=== PATIENT | male | born 1945 | race Caucasian/White ===

== ENCOUNTER → 2021-04-29 06:13 | Outpatient (CLI) | payer MEDICARE, BC, SELFPAY ==
--- NOTE | 2021-04-29 06:16 | MRI_ITS ---
STUDY: MRI LUMBAR SPINE WITH AND WITHOUT CONTRAST REASON FOR EXAM: Male, 76 years old. pain TECHNIQUE: Standardized fat and water weighted pulse sequences were obtained in the sagittal and axial planes. IV dotarem 18ml was administered for the contrast portion of the examination. COMPARISON: Lumbar spine x-ray obtained 04/14/2021 FINDINGS: Straightening of the normal alignment of the columns of the lumbar spine is visualized. Mild grade 1 retrolisthesis of L4 over L5 is seen. Postoperative changes in the posterior column with laminectomy visualized at L3, L4 and L5. Extensive multilevel degenerative endplate changes visualized, no evidence of compression deformity of the lumbar vertebral bodies is seen, Schmorl''s nodes visualized at multiple levels. Heterogeneous signal intensity visualized within the marrow of the lumbar vertebral bodies consistent with degenerative changes and yellow marrow, no evidence of T2 prolongation on the STIR sequence to suggest edema, infection or infiltrative process. Decreased intervertebral disc height visualized throughout the lumbar spine but most prominent at L4-L5 and L3-L4. A circumscribed soft tissue density visualized in the anterolateral aspect of the spinal canal seen on sagittal T2-weighted series 2 image 6, 7 and 8 and on axial T2-weighted series 5 image 14, after contrast administration there is circumferential enhancement with no central enhancement as demonstrated on sagittal series 7 image 7 and axial series 8 image 3, on axial images this lesion appears to be contiguous with the left lateral aspect of the anterior epidural space and also thought to represent and inferiorly extruding/sequestered disc fragment. Subtle enhancement and thickening of the anterior epidural space is visualized at this level. No areas of abnormal enhancement within the vertebral bodies or intervertebral disc spaces, no evidence of epidural collection is visualized. No evidence of collections in the posterior column. No areas of abnormal enhancement visualized in the posterior column after contrast administration. The cord terminates at the level of the L1 vertebral body, no abnormal signal intensity visualized within the terminal cord, the terminal neurofibers demonstrate no evidence of thickening or clumping, no evidence of arachnoiditis. Left kidney parapelvic cysts seen. L1-2: Degenerative disc changes, hypertrophic changes in the facet joints is visualized bilaterally, no narrowing of the spinal canal is seen at this level, mild to moderate narrowing of the right neural foramina and mild narrowing of the left neuroforamina is seen at this level. L2-3: Circumferential disc bulge with a right paracentral component visualized mildly effacing the ventral CSF spaces no significant narrowing of the spinal canal is seen, hypertrophic changes in the facet joints and ligamentum flavum visualized at this level, mild to moderate narrowing of the right neural foramina and mild narrowing of the left neuroforamina is seen at this level. L3-4: Circumferential disc bulge with hypertrophic changes in the facet joints, posterior decompression visualized at this level, disc fragment visualized in the left lateral aspect of the spinal canal causing mild narrowing of the spinal canal, mild prominence of the anterior epidural space visualized at this level. Mild narrowing of the neural foramina is visualized bilaterally at this level. L4-5: Circumferential disc bulge with hypertrophic changes in the facet joints, no significant narrowing of the spinal canal, mild narrowing of bilateral neural foramina is visualized at this level. L5-S1: Circumferential disc bulges hypertrophic changes in the facet joints is visualized at this level, T2 punctation visualized in the facet joints bilaterally at this level, mild narrowing of the spinal canal is seen, moderate to severe narrowing of bilateral neural foramina seen at this level. Normal visualized sacral ala. Normal visualized paraspinous soft tissue structures. MRI/Spine Lumbar W/WO Contrast IMPRESSION: Extensive degenerative changes of the lumbar spine visualized, multilevel degenerative intervertebral disc disease seen. Postoperative changes. Suggestion of a sequestered disc fragment in the left lateral aspect of the spinal canal that appears to arise from the left lateral aspect of the L3-4 intervertebral disc. Electronically Signed: Gordon Martines MD at 13:07 EDT Tel , Service support ,
[2021-04-29 06:40] LABS: CREATININE FINGERSTICK < 0.6 mg/dL (0.70-1.30); EGFR FINGERSTICK > 60.0000 mL/min (>60)
== END ==
PROVIDERS: PCP Family Medicine; Referring Provider Orthopaedic Surgery; Visit Provider Orthopaedic Surgery
DX: M54.17 Radiculopathy, lumbosacral region (principal); M16.12 Unilateral primary osteoarthritis, left hip
CPT/HCPCS: 72158; A9575

== ENCOUNTER 2021-06-24 15:13 | Inpatient (IN) | payer MEDICARE, BC, SELFPAY ==
--- NOTE | 2021-06-16 09:05 | EKG12_ITS ---
Test Reason : PRE OP Blood Pressure : / mmHG Vent. Rate : 063 BPM Atrial Rate : 063 BPM P-R Int : 148 ms QRS Dur : 080 ms QT Int : 380 ms P-R-T Axes : 035 026 038 degrees QTc Int : 388 ms Sinus rhythm with Premature supraventricular complexes Nonspecific ST and T wave abnormality Abnormal ECG Confirmed by STEPHANIE SOTOMAYOR, JERRY ([id number]), online content editor RAFY ANNE ([id number]) on 06/17/2021 1:19:59 PM Referred By: Roman Hernandes Confirmed By:JERRY BROWN MD
[2021-06-16 10:03] LABS: Absolute Lymphocyte Count 1.69 X10^3/uL (0.83-4.51); Absolute Neutrophil Count 4.5 X10^3/uL (2.0-7.7); Basophil# 0.07 X10^3/uL; Eosinophil# 0.19 X10^3/uL; Eosinophils% 2.7 % (0-5); Hematocrit 44.8 % (40-54); Hemoglobin 15.9 g/dL (13.0-16.5); Lymphocyte # 1.69 X10^3/ul (0.83-4.51); Lymphocyte % 23.9 % (19-41); Mean Corp Hgb Conc 35.5 g/dL (32-36); Mean Corpuscular Hgb 32.9 pg (27.0-32.0); Mean Corpuscular Volume 92.8 fL (80-94); Mean Platelet Vol. 9.6 fl (6.2-12.0); Monocyte# 0.57 X10^3/uL; Monocyte% 8.1 % (0-10); NRBC Flagged by Analyzer 0 % (0-5); Neutrophil # 4.53 X10^3/uL (2.7-7.7); Platelet Count 237 K/mm3 (150-450); RBC Distribution Width CV 13.2 % (11.6-14.6); RBC Distribution Width SD 44.5 fl (35.1-43.9); Red Blood Count 4.83 M/mm3 (4.6-6.2); White Blood Count 7.1 K/mm3 (4.4-11.0)
[2021-06-16 10:13] LABS: Partial Thromboplast Time 24.1 Seconds (24.1-36.2)
[2021-06-16 10:49] LABS: Anion Gap 5 (5-15); BUN 15 mg/dL (7-18); BUN/Creat Ratio 21.8 RATIO (10-20); Chloride 109 mmol/L (98-107); Creatinine, Serum 0.69 mg/dL (0.70-1.30); EST Glomerular Filtration Rate 120 mL/min (>60); Est Glom Filt Rate - Afr Amer 145 mL/min (>60); Glucose 178 mg/dL (74-106); Potassium 4.3 mmol/L (3.5-5.1); Sodium Level 139 mmol/L (136-145)
[2021-06-16 11:21] LABS: HIV - WCH Non-Reactive (Nonreactive); Hepatitis B Surface Antibody Non-Reactive; Hepatitis C Antibody Non-Reactive (Nonreactive)
[2021-06-17 07:35] LABS: Hepatitis A AB, Total Negative (Negative)
--- NOTE | 2021-06-23 09:59 | PCM.HP.BLA ---
History and Physical Date of Admission: 06/24/21 [facility] [id number] [id number] OFFICE VISITDate of Service: 04/14/21 MR#:[id number]:[id number]: RODRIGO DODSON [facility] #:[id number]:[id number] Provider:Dr. Roman Hernandes DOAge/Sex: 76/M Location:[place]:Signed Intake Intake Visit Reasons: Lumbar spine Allergies No Known Allergies Allergy (Verified 04/14/21 14:45) Medications glucosamine HCl 500 mg tablet 500 mg PO DAILY 04/14/21 [History Confirmed 04/14/21] omega-3 417 mg-dha 120 mg-epa-276 mg-fish oil 600 mg-tumeric capsule cap PO 04/14/21 [History Confirmed 04/14/21] phenytoin sodium extended 100 mg capsule 100 mg PO BID 04/14/21 [History Confirmed 04/14/21] PFSH Surgical History (Updated 04/14/21 @ 15:01 by Cyndi Warner) History of back surgery History of hip replacement Social History Smoking Status: Never smoker alcohol intake: current HPI Lumbar spine Details: Parts of this documentation were recorded by a scribe, this documentation accurately reflects the service provided and the decisions made by me, Dr. Roman Hernandes DO 04/14/21 1428. RODRIGO DODSON is a 76 year old M here today for NEW patient lower back pain. Patient states he has a pinched nerve in his lower back that is causing him to have radiating pain down his left leg. Patient states he does not have any numbness or tingling. Patient states this pinched nerve has been an issues for about 21/2 years. Patient states this pain has just been getting worse over the last couple years. Patient states it all started after his last surgery in 2019. Patient has had multiple surgeries done to his back. Patient states he has been to a Chiropractor in the past as well as a retail merchandising specialist. Patient states he takes Aleve and Advil as needed for his back pain. Patient states he has tried to use heat but it has not done him much good. Paulo does have a TENS unit at home but has not used it latley. Alexander is a most pleasant gentleman 76 years old has chief complaint of pain in the left buttocks that radiates down the left anterior thigh and down the disc below the knee on the medial side. Basically he is describing an L4 dermatome. He states that he had his last surgery 2-1/2 years ago for that very pain that he has now. He states that for a month the pain was completely gone then it came back. It has been there ever since now for 2-1/2 years. Overall he thinks is getting worse than it was. He denies any bowel or bladder dysfunction. He denies history of explained weight loss night fever sweats or chills. The last lumbar MRI he had was before his surgery 2-1/2 years ago. On examination he has positive tension signs on the left side. He has pain down the leg with extension of his lumbar spine. He has some atrophy of the left quadriceps mechanism as compared to the right. His left patellar reflex is absent. His right 1 is physiologic. In addition he has some problem with his left hip it is obvious that it is very stiff and it hurts with internal or external rotation. I did x-ray his hip that demonstrates advanced arthritis of the left hip. I think the worst of his 2 problems is his apparent L4 radiculopathy. We are ordering an MRI scan of the lumbar spine. It will be done with contrast of course because of his multiple surgeries. I will see him after that study and make further recommendations. Coding Level of Care Code Off vis,new,level 3 Diagnoses Lumbosacral radiculopathy at L4 M54.17 Primary localized osteoarthritis of left hip M16.12 Time Spent (min) 35 Assessment and Plan Assessment and Plan (1) Lumbosacral radiculopathy at L4: Status: Acute (2) Primary localized osteoarthritis of left hip:
[2021-06-24] VITALS (16 sets, daily range): BP systolic 103–187; BP diastolic 69–99; PULSE 57–79; RESP 16–18; TEMP 35.8–36.7; O2SAT 92–100; BMI 29.5
[2021-06-24 10:55] LABS: Bedside Glucose 131 mg/dL (70-110)
[2021-06-24] MEDS: Lactated Ringers 1,000 ML 15 ML IV (11:10)
[2021-06-24] MEDS: Acetaminophen 500 MG Tablet 1000 MG PO (11:15)
[2021-06-24] MEDS: Cefazolin 2 GM in 0.9% Normal Saline 100 ML IV (12:28)
--- NOTE | 2021-06-24 12:40 | BON_PTH ---
PATIENT: RODRIGO DODSON LOC: MS3 U#:[id number] AGE/SX: 76/M ROOM: [facility] RE06/24/[address]: Dr. Bonnie Banda MD : 1945 BED: 1 DIS: 06/27/2021 SPEC #: [id number] RECD: 06/25/21 10:28 STATUS: ELVIS REQ #: [id number] JASON: 06/24/21 12:[address]: Roman Hernandes DEPT: SURGICAL PATHOLOGY RECD BY: Italia Staples ENTERED: 06/25/21 11:08 SP TYPE: Bone OTHR DR: MD Dr. Roman Barnes DO Dr. Prakash Chand, MD Dr. Scott Brown, MD Tissues: Vertebra, NOS Procedures: Decalcification bone/plaque Surgery Specimen Level IV Comments: @ Ordering doctor for DEC edited from to @ by JESUS at 06/25/21 144 @ Ordering doctor for SUIV edited from to @ by JSEUS at 06/25/21 144 @ Submitting doctor edited from to @ by JESUS at 06/25/21 1442 HEADER OPERATION: Lumbar laminectomy L3-4 PRE-OP DIAGNOSIS: Lumbosacral radiculopathy L4 TISSUE SUBMITTED: Vascular tumor (lumbar) MICROSCOPIC DIAGNOSIS Vascular tumor lumbar, laminectomy L3-4: Fragments of fibrovascular tissue, fibroconnective tissue and bone with reactive changes. See comment. Shereen 06/26/2021 COMMENT Changes consistent with vascular tumor are not seen. Clinical correlation and appropriate follow up are necessary. MICROSCOPIC DESCRIPTION Slides are reviewed. GROSS DESCRIPTION Received in fixative is one container labeled with the patient's name and designated vascular tumor lumbar. The specimen consists of multiple fragments of bone that in aggregate measure 1.5 x 1.5 x 0.1 cm. The entire specimen is submitted in one cassette after decalcification. / SARA:flako 06/25/21 TC:5 CPT: 19157, 10272
--- NOTE | 2021-06-24 12:40 | RAD_ITS ---
STUDY: X-RAY - LUMBAR SPINE REASON FOR EXAM: Male, 76 years old. LAMINECTOMY L3-4, LEFT TECHNIQUE: 1 view(s) of the lumbar spine were obtained. COMPARISON: None FINDINGS: Localization instrument is posterior to the L3-L4 disc space level. RAD/Spine 1 View Any Level IMPRESSION: Localization instrument is seen along the posterior aspect of the L3-L4 disc space level. Electronically Signed: Fred Merchant MD at 15:23 EST , Service support ,
[2021-06-24] MEDS: THROMBIN (RECOMBINANT) 20,000 UNIT VIAL 20000 UNIT TOPICAL (13:19)
--- NOTE | 2021-06-24 15:19 | OP.PCM_ITS ---
Report of Operation Date of Procedure: 06/24/21 Description of Surgical Findings:: Preop diagnosis: Sequestered L3-4 disc left side Postoperative diagnosis: Vascular tumor epidural space Procedures. Repeat laminectomy L3-4 on the left with excisional biopsy of vascular tumor CPT code 51641 Surgeon: Dr. Hernandes occupational therapy assistant: Fátima ERVIN Anesthesia: General endotracheal anesthesia administered by [facility] Estimated blood loss: 200 cc Drains: None Complications: Dural leak Procedure: Patient was taken to the OR where he was placed under general endotracheal anesthesia a Leo catheter was inserted. Neuro monitoring put their leads and the patient. He was then placed in prone position on the Geovanni frame. After appropriate positioning with care to protect his bony prominences it is genitalia the ulnar nerves of both elbow and the brachial plexus bilaterally the back was prepped and draped in standard fashion I then made a longitudinal incision centered over the area that I thought would be L3-4. Note that he had had a 3 level decompression in the past and he had no spinous processes of L3-L4 or L5. However I used the L2 spinous process that was remaining as somewhat of a guide as to where to begin the incision. Went through the midline in through the lumbar fascia with cautery. At some point I felt that I could go no deeper safely so I started skiving to the left side. Identified facet thought to be the facet of 3 4 identified and cauterized over it then took an intraoperative x-ray with a marker in place the demonstrated that we remains right at the L3-4 space. Knowing that the suppose it fragment of disc went just below the disc level. It was a tedious process because of all the scar tissue however I was able to use curettes to slowly release scar tissue off of the inside of the facet and the pars in between. In this fashion I slowly was able to make my way down and started retracting the dura medialward exposing the vascular tumor noted it was quite bloody once we started removing it as expected hence we lost about 200 cc of blood. Nonetheless we got enough of the tumor to send to pathology. In addition an attempt to release ligamentum flavum off of the edge of the dura we had a small leak in the dura this was easily solved by using DuraGen. Upon closing we had a very dry field we then did not put a drain in but we closed the lumbar fascia using [id number]-bl-slxul suture with #1 Vicryl for closure of subcutaneous tissues and interrupted fashion using 2-0 Vicryl and the skin was approximated using skin clips sterile dressings were then applied the patient was then recovered in the OR has been to his hospital bed and taken to recovery in satisfactory condition. This is the end of operative summary on Artur Bee. This is Dr. Hernandes dictating.
--- NOTE | 2021-06-24 18:21 | PCS.PANDOC ---
PANDEMIC DOCUMENTATION INITIATED: Date: 03/10/2021 Time: 190
[2021-06-24] MEDS: Morphine 2 MG/ML Syringe IV ×2 (18:45→22:41)
[2021-06-24] MEDS: Lactated Ringers 1,000 ML 100 ML IV (18:45)
[2021-06-24] MEDS: oxyCODONE 5 MG Tablet PO (20:27)
--- NOTE | 2021-06-24 20:35 | PN.HOSP_ITS ---
Subjective Subjective This is 76 lotion gentleman who is being admitted in orthopedic spine, Dr. Hernandes service after elective L3-4 disc sequestrated left side. Postoperative diagnosis found vascular tumor epidural space. Patient had repeat laminectomy L3-4 on left side with excisional biopsy of vascular tumor. Patient had surgery under general anesthesia. Prior to that, patient had severe back pain with radiation to left buttock to dermatome of L4 for past 2 and half years. The pain was consistent and progressive. His previous back surgery was in 2019. Patient other comorbidities include history of epilepsy, controlled. Occasional migraine headache. Denies history of hypertension. On the floor patient blood pressure was found high, 187/99, 176/94. Patient has Leo catheter, draining clear urine. Denies chest pain, shortness of breath. No abdominal pain. Complain of back pain 3-4/10 intensity, controlled on IV mo rphine. Patient was told to lay on the back. Objective Data Objective Data Vital Signs: Vital Signs Temp Pulse Resp BP Pulse Ox 96.8 F L 68 18 187/99 H 97 06/24/21 20:20 06/24/21 20:20 06/24/21 20:20 06/24/21 20:20 06/24/21 20:20 Oxygen Flow Rate (L/min) 2 Oxygen Delivery Method Nasal Cannula Weight: 205 lb 7.533 oz Body Mass Index (BMI) 29.5 Intake & Output: Intake and Output for Last 24 Hours 06/22/21 06/23/21 06/24/21 23:59 23:59 23:59 Intake Total 199.5 / 199.5 Output Total 1150 / 1150 Balance -950.5 / -950.5 Lab / Micro Data Result Diagrams: 06/16/21 09:18 06/16/21 09:18 Labs: Laboratory Results - last 24 hr 06/24/21 10:53: POC Glucose 131 H Micro: Microbiology 06/16/21 09:18 Swab (Method) Nasal Screen MRSA/MSSA - Final Physical Exam Narrative General: Alert, Oriented x3, Cooperative HEENT: Atraumatic, PERRLA, EOMI, Normocephalic Oral: No Gingival or Mucosal Lesions/ Ulcerations Neck: Supple, No JVD, Negative Carotid Bruits Lungs: Air entry diminished in bilateral lung bases. No crepitation/rhonchi Cardiovascular: Regular rate, Regular Rhythm, Normal S1, Normal S2, No murmurs Abdomen: Bowel Sounds Present, Soft, Non Tender, Non-Distended : Leo catheter, clear urine. No renal angle tenderness. No suprapubic tenderness. Extremities: No edema, Capillary Refill Less than 3 Seconds Skin: No rashes, No breakdown Musculoskeletal: Spine could not be examined patient is laying supine. Lumbar spine, perioperative region tenderness. Neurological: Cranial nerves II-XII grossly intact, DTR 2+/4 and Symmetrical, Neuro grossly intact Psych/Mental Status: Normal Affect, Appropriate. Assessment & Plan Assessment/Plan (1) Lumbosacral radiculopathy at L4: PLAN: 1. Sequestrated L3-L4 disc on left side. Postop diagnosis vascular tumor epidural space. Patient had repeat laminectomy L3-4 on left with excisional biopsy vascular tumor on 06/24/[address] Hernandes. Currently patient laying on supine. Pain control. VT prophylaxis as appropriate by Dr. Hernandes. 2. High blood pressure: Patient does not carry diagnosis of hypertension. Preop related to anesthetic agents. On lisinopril 10 mg along with hydralazine 10 mg IV every 4 hourly as needed for systolic blood pressure more than 180 IVIG ordered 3. Chronic epilepsy disorder, unknown type, etiology and intermittent chronic migraine: Patient on phenytoin at home and continued. 4. Patient had hip replacement in the past. VTE prophylaxis: Bilateral SCDs Charges/Coding Visit Charges Inpatient E&M: 80120 Init Hosp L2
[2021-06-24] MEDS: Cefazolin 1 GM/50 ML BAG IV (21:01)
[2021-06-24] MEDS: 0.9% NaCl Peripheral Flush Adult/Peds IV (22:41)
[2021-06-24] MEDS: Phenytoin Na 100 MG Capsule PO (22:43)
[2021-06-24] MEDS: Famotidine 20 MG Tablet PO (22:44)
[2021-06-24] MEDS: Senna/Docusate Sodium 1 Tablet 2 TABLET PO (22:44)
[2021-06-25] VITALS (7 sets, daily range): BP systolic 113–140; BP diastolic 67–90; PULSE 64–80; RESP 16–18; TEMP 36.6–36.7; O2SAT 93–97
[2021-06-25] MEDS: 0.9% NaCl Peripheral Flush Adult/Peds IV (01:00)
[2021-06-25] MEDS: Lisinopril 10 MG Tablet PO (01:00)
[2021-06-25] MEDS: oxyCODONE 5 MG Tablet PO ×5 (01:05→20:08)
[2021-06-25] MEDS: Cefazolin 1 GM/50 ML BAG IV (04:06)
[2021-06-25] MEDS: Lactated Ringers 1,000 ML 100 ML IV ×3 (05:35→23:32)
[2021-06-25] MEDS: Phenytoin Na 100 MG Capsule PO ×3 (05:36→20:08)
--- NOTE | 2021-06-25 06:56 | PN.HOSP_ITS ---
Subjective Subjective Patient overnight with ongoing pain, even without movement as he had noted that previously his pain only occurred with movement. He notes currently it is 10 out of 10. Discussed with nursing staff and pain medication regimen changes were made. Patient denies fevers, chills, nausea, emesis, abdominal pain, chest pain or dyspnea. Objective Data Objective Data Vital Signs: Vital Signs Temp Pulse Resp BP Pulse Ox 97.9 F 77 16 138/79 H 97 06/25/21 04:00 06/25/21 04:00 06/25/21 04:00 06/25/21 04:00 06/25/21 04:00 Oxygen Flow Rate (L/min) 2 Oxygen Delivery Method Nasal Cannula Weight: 205 lb 7.533 oz Body Mass Index (BMI) 29.5 Intake & Output: Intake and Output for Last 24 Hours 06/23/21 06/24/21 06/25/21 23:59 23:59 23:59 Intake Total 199.5 / 199.5 1160 / 1160 Output Total 1150 / 2600 2150 / 2150 Balance -950.5 / -2400.5 -990 / -990 Lab / Micro Data Result Diagrams: 06/16/21 09:18 06/16/21 09:18 Labs: Laboratory Results - last 24 hr 06/24/21 10:53: POC Glucose 131 H Micro: Microbiology 06/16/21 09:18 Swab (Method) Nasal Screen MRSA/MSSA - Final Physical Exam Narrative Physical Examination: General: Awake, alert, oriented x 3 and cooperative, laying flat in the bed, notes still ongoing significant pain status post recent repeat laminectomy L3-4 on the left side with excisional biopsy of a vascular tumor. Skin: Normal color, normal turgor, no icterus, no cyanosis. HEENT: AT/NC, EOMI, PERRLA, mildly dry MM. Lungs: CTA bilaterally, moderate effort, mild decrease BL bases, no rales, ronchi or wheezing. Heart: Regular rate and rhythm; no gallop, rub audible. Abdomen: Soft, overweight, NTTP, ND, mildly hyperactive bowel sounds Extremities: No cyanosis, clubbing, or edema. Neurological: Patient awake, alert, oriented as noted, cognitive function intact; pupils equally reactive to light and accommodation, cranial nerves II- XII grossly normal, moving all 4 extremities, no focal deficits, strength severely global decreased however this is significantly diminished because of his pain and recent lumbar back surgery. Psychiatric: Affect appears uncomfortable, no acute evidence of depressive or anxiety feelings. Assessment & Plan Assessment/Plan (1) Lumbosacral radiculopathy at L4: PLAN: The patient is a 76 y/o M w/ PMHx: Epilepsy, Overweight, Severe OA s/p prior R THR, significant L4 lumbosacral radiculopathy who presents to the [facility] on 06/24/21 for planned intervention with L3-4 laminectomy on the left with an excisional biopsy of a vascular tumor per Dr. Hernandes. #1. Severe intractable lumbosacral radiculopathy L3-4 with incidental vascular epidural space tumor: Patient admitted to medical surgical floor by Dr. Hernandes, 06/24/2021 laminectomy L3-4 on the left with excisional biopsy of a vascular tumor, continues in the supine position per neurosurgery discretion, given significant pain will alter patient pain regimen, any movement or alteration to positioning or therapy involvement per Dr. Hernandes discretion, chemoprophylaxis also per his discretion given recent back intervention, pathology pending. #2. Elevated BP without hypertensive diagnosis: Patient with no prior noted history of hypertension however significantly ongoing blood pressures, certainly could be pain related however overnight he was started on low-dose lisinopril with as needed breakthrough hydralazine with improvement, will continue to monitor. #3. Epilepsy: We will continue patient home phenytoin regimen. #4. Severe osteoarthritis: Holding any NSAID therapy given patient acute presentation with #1. #5. DVT prophylaxis: SCDs, chemoprophylaxis per surgery discretion. Charges/Coding Visit Charges Inpatient E&M: 23599 Subs Hosp L2
[2021-06-25] MEDS: Morphine 4 MG/ML Syringe IV (08:33)
[2021-06-25] MEDS: Senna/Docusate Sodium 1 Tablet 2 TABLET PO ×2 (08:34→20:08)
[2021-06-25] MEDS: Famotidine 20 MG Tablet PO ×2 (08:34→20:08)
[2021-06-25] MEDS: Ascorbic Acid 500 MG Tablet 1000 MG PO (08:35)
--- NOTE | 2021-06-25 09:48 | CASEMGMT ---
VALERIE KINGSTON Assessment: Face to Face with pt for initial transition planning/care coordination assessment. RN THEE introduced self and role at [facility], pt voices understanding and consents to assessment. Pt is A/O x4 and answers all questions appropriately at this time. Pt lying flat on back in bed in no distress. Care providers, pharmacy, and demographics verified/updated. Admitting Dx: lumbar laminectomy Lt L3-4 PCP: Michael Specialists: Cecilio, spine surgeon [facility]erred [facility] Benef[facility]: yes LW/HPOA: Pt states he has a LW/DPOA and his DPOA is his Viviana Bee. He is aware that this is not on file at [facility] and he may bring in to be scanned into his chart. LNOK: Viviana Bee, Living Arrangements: Pt lives in a two story house with one step to enter. Pt reports he is I in ADL's and denies concerns at home. Transportation: Pt drives self and denies concerns with transportation. DME/HHC/SNF: Pt has a walker at home but does not currently use. Pt denies hx of HHC or SNF stays. Pt states no concerns with going home at time of dc. Pt states no further concerns/needs. CM to follow. Advised pt to ask CM if any further question/concerns/needs arise, voices understanding. Pt Goal: Home Plan: Home
--- NOTE | 2021-06-25 12:51 | PCM.PN.ORT ---
Objective Data Objective Data Vital Signs: Vital Signs Temp Pulse Resp BP Pulse Ox 98.1 F 64 18 122/68 H 94 06/25/21 11:47 06/25/21 11:47 06/25/21 11:47 06/25/21 11:47 06/25/21 11:47 Oxygen Flow Rate (L/min) 2 Oxygen Delivery Method Nasal Cannula Weight: 205 lb 7.533 oz Body Mass Index (BMI) 29.5 Intake & Output: Intake and Output for Last 24 Hours 06/23/21 06/24/21 06/25/21 23:59 23:59 23:59 Intake Total 199.5 / 199.5 1160 / 1160 Output Total 1150 / 2600 2150 / 2150 Balance -950.5 / -2400.5 -990 / -990 Lab / Micro Data Result Diagrams: 06/16/21 09:18 06/16/21 09:18 Micro: Microbiology 06/16/21 09:18 Swab (Method) Nasal Screen MRSA/MSSA - Final Procedure Criteria Elective Risks - COVID COVID Risk Discussion: Postop day #1. Artur is flat in bed because we had a small dural leak and he will be in bed until tomorrow. He is having a lot of quad pain down the same leg and out of the office from the swelling of the nerve root that we experienced yesterday. We are awaiting the pathology report from the vascular tumor that we found. We did not find a ruptured disc. His back also is quite sore. Progress is satisfactory for now.
[2021-06-25] MEDS: Zolpidem Tartrate 5 MG Tablet PO (20:08)
[2021-06-26 02:29] VITALS: BP 140/76; PULSE 71; RESP 18; TEMP 36.6; O2SAT 98
[2021-06-26] MEDS: oxyCODONE 5 MG Tablet PO ×3 (02:32→20:39)
[2021-06-26] MEDS: Phenytoin Na 100 MG Capsule PO ×3 (06:12→20:39)
[2021-06-26] MEDS: diazePAM 5 MG Tablet PO (06:12)
--- NOTE | 2021-06-26 06:28 | PCM.PN.HOSP ---
Subjective Subjective Patient with no acute events overnight per self and per nursing report. He notes that the oxycodone alterations were effective in controlling his pain. His blood pressure remains improved since initial presentation although it has somewhat fluctuated. He does report that he is currently having constipation and requesting agents for this. Patient denies fevers, chills, nausea, emesis, abdominal pain, chest pain or dyspnea. Objective Data Objective Data Vital Signs: Vital Signs Temp Pulse Resp BP Pulse Ox 98 F 71 18 140/76 H 98 06/26/21 02:29 06/26/21 02:29 06/26/21 02:29 06/26/21 02:29 06/26/21 02:29 Oxygen Flow Rate (L/min) 2 Oxygen Delivery Method Room Air Weight: 205 lb 7.533 oz Body Mass Index (BMI) 29.5 Intake & Output: Intake and Output for Last 24 Hours 06/24/21 06/25/21 06/26/21 23:59 23:59 23:59 Intake Total 199.5 / 199.5 5436.50 / 5436.50 0 / 0 Output Total 1150 / 2600 4050 / 4050 1400 / 1400 Balance -950.5 / -2400.5 1386.50 / 1386.50 -1400 / -1400 Lab / Micro Data Result Diagrams: 06/26/21 06:05 06/26/21 06:05 Micro: Microbiology 06/16/21 09:18 Swab (Method) Nasal Screen MRSA/MSSA - Final Radiography Diagnostic Testing: Radiology Impression Spine X-Ray 06/24/21 12:40 IMPRESSION: Localization instrument is seen along the posterior aspect of the L3-L4 disc space level. Electronically Signed: Fred Merchant MD at 15:23 EST , Service support , Physical Exam Narrative Physical Examination: General: Awake, alert, oriented x 3 and cooperative, laying flat in the bed, pain improved, currently only complaint is constipation. Skin: Normal color, normal turgor, no icterus, no cyanosis. HEENT: AT/NC, EOMI, PERRLA, improved MMM. Lungs: CTA bilaterally, moderate effort, mild decrease BL bases, no rales, ronchi or wheezing. Heart: Regular rate and rhythm; no gallop, rub audible. Abdomen: Soft, overweight, some mild discomfort with palpation, no obvious distention, notably hyperactive bowel sounds. Extremities: No cyanosis, clubbing, or edema. Neurological: Patient awake, alert, oriented as noted, cognitive function intact; pupils equally reactive to light and accommodation, cranial nerves II-XII grossly normal, moving all 4 extremities, no focal deficits, strength severely global decreased however this is significantly diminished because of his pain and recent lumbar back surgery. Psychiatric: Affect appears improved, no acute evidence of depressive or anxiety feelings. Assessment & Plan Assessment/Plan (1) Lumbosacral radiculopathy at L4: PLAN: The patient is a 76 y/o M w/ PMHx: Epilepsy, Overweight, Severe OA s/p prior R THR, significant L4 lumbosacral radiculopathy who presents to the [facility] on 06/24/21 for planned intervention with L3-4 laminectomy on the left with an excisional biopsy of a vascular tumor per Dr. Hernandes. #1. Severe intractable lumbosacral radiculopathy L3-4 with incidental vascular epidural space tumor: Patient admitted to medical surgical floor by Dr. Hernandes, 06/24/2021 laminectomy L3-4 on the left with excisional biopsy of a vascular tumor, continues in the supine position per neurosurgery discretion, given significant pain will alter patient pain regimen, any movement or alteration to positioning or therapy involvement per Dr. Hernandes discretion, chemoprophylaxis also per his discretion given recent back intervention, pathology pending. #2. Elevated BP without hypertensive diagnosis: Patient with no prior noted history of hypertension however significantly ongoing blood pressures, certainly could be pain related however overnight he was started on low-dose lisinopril with as needed breakthrough hydralazine with improvement, will continue to monitor. #3. Epilepsy: We will continue patient home phenytoin regimen. #4. Severe osteoarthritis: Holding any NSAID therapy given patient acute presentation with #1. #5. DVT prophylaxis: SCDs, chemoprophylaxis per surgery discretion. Charges/Coding Visit Charges Inpatient E&M: 28074 Subs Hosp L2
[2021-06-26 06:56] LABS: Absolute Lymphocyte Count 1.45 X10^3/uL (0.83-4.51); Absolute Neutrophil Count 7.1 X10^3/uL (2.0-7.7); Basophil# 0.05 X10^3/uL; Basophil% 0.5 % (0-1); Eosinophil# 0.29 X10^3/uL; Eosinophils% 2.8 % (0-5); Hematocrit 40.1 % (40-54); Hemoglobin 13.8 g/dL (13.0-16.5); Lymphocyte # 1.45 X10^3/ul (0.83-4.51); Mean Corp Hgb Conc 34.4 g/dL (32-36); Mean Corpuscular Hgb 31.9 pg (27.0-32.0); Mean Corpuscular Volume 92.6 fL (80-94); Mean Platelet Vol. 9.9 fl (6.2-12.0); Monocyte# 1.42 X10^3/uL; Monocyte% 13.7 % (0-10); NRBC Flagged by Analyzer 0 % (0-5); Neutrophil # 7.09 X10^3/uL (2.7-7.7); Neutrophil % 68.6 % (47-70); Platelet Count 183 K/mm3 (150-450); RBC Distribution Width CV 12.4 % (11.6-14.6); RBC Distribution Width SD 42.3 fl (35.1-43.9); Red Blood Count 4.33 M/mm3 (4.6-6.2); White Blood Count 10.3 K/mm3 (4.4-11.0)
[2021-06-26 07:16] LABS: ALB/GLOB Ratio 0.7 RATIO (0.9-2.4); AST(SGOT) 15 U/L (15-37); Alanine Aminotransfer ALT/SGPT 28 U/L (16-61); Albumin, Serum 2.4 g/dL (3.2-5.0); Alkaline Phosphatase 80 U/L (45-117); Anion Gap 7 (5-15); BUN 7 mg/dL (7-18); BUN/Creat Ratio 10.5 RATIO (10-20); Calcium,Total 8.4 mg/dL (8.5-10.1); Chloride 103 mmol/L (98-107); Creatinine, Serum 0.66 mg/dL (0.70-1.30); EST Glomerular Filtration Rate 124 mL/min (>60); Est Glom Filt Rate - Afr Amer 151 mL/min (>60); Estimated Creatinine Clearance 66.92 ml/min; Globulin 3.5 g/dL (2.2-4.2); Glucose 175 mg/dL (74-106); Potassium 3.8 mmol/L (3.5-5.1); Protein, Total 5.9 g/dL (6.4-8.2); Sodium Level 138 mmol/L (136-145)
[2021-06-26 08:13] VITALS: BP 160/84; PULSE 74; RESP 16; TEMP 36.4; O2SAT 98
[2021-06-26] MEDS: Ensure Surgery 237 ML LIQUID PO ×3 (08:29→16:52)
[2021-06-26] MEDS: Senna/Docusate Sodium 1 Tablet 2 TABLET PO ×2 (08:29→20:39)
[2021-06-26] MEDS: Famotidine 20 MG Tablet PO ×2 (08:30→20:39)
[2021-06-26] MEDS: Ascorbic Acid 500 MG Tablet 1000 MG PO (08:30)
[2021-06-26] MEDS: Lisinopril 10 MG Tablet PO (08:30)
[2021-06-26] MEDS: Lactated Ringers 1,000 ML 100 ML IV ×2 (09:54→20:39)
[2021-06-26 12:50] VITALS: O2SAT 98
[2021-06-26 13:21] VITALS: BP 147/90; PULSE 94; RESP 28; TEMP 36.7; O2SAT 92
--- NOTE | 2021-06-26 15:25 | PN.ORTHO_ITS ---
Objective Data Objective Data Vital Signs: Vital Signs Temp Pulse Resp BP Pulse Ox 98.0 F 94 28 H 147/90 H 92 06/26/21 13:21 06/26/21 13:21 06/26/21 13:21 06/26/21 13:21 06/26/21 13:21 Oxygen Flow Rate (L/min) 2 Oxygen Delivery Method Room Air Weight: 205 lb 7.533 oz Body Mass Index (BMI) 29.5 Intake & Output: Intake and Output for Last 24 Hours 06/24/21 06/25/21 06/26/21 23:59 23:59 23:59 Intake Total 199.5 / 199.5 5436.50 / 5436.50 1000 / 1000 Output Total 1150 / 2600 4050 / 4050 1400 / 1400 Balance -950.5 / -2400.5 1386.50 / 1386.50 -400 / -400 Lab / Micro Data Result Diagrams: 06/26/21 06:05 06/26/21 06:05 Labs: Laboratory Results - last 24 hr 06/26/21 06:05: WBC 10.3, RBC 4.33 L, Hgb 13.8, Hct 40.1, MCV 92.6, MCH 31.9, MCHC 34.4, RDW Std Deviation 42.3, RDW Coeff of Krystin 12.4, Plt Count 183, MPV 9.9, Immature Gran % (Auto) 0.400, Neut % (Auto) 68.6, Lymph % (Auto) 14.0 L, [place] % (Auto) 13.7 H, Eos % (Auto) 2.8, Baso % (Auto) 0.5, Absolute Neuts (auto) 7.1, Absolute Lymphs (auto) 1.45, Nucleated RBC % 0 06/26/21 06:05: Sodium 138, Potassium 3.8, Chloride 103, Carbon Dioxide 28.0, Anion Gap 7, BUN 7, Creatinine 0.66 L, Estim Creat Clear Calc 66.92, Est GFR (MDRD) Af Amer 151, Est GFR (MDRD) Non-Af 124, BUN/Creatinine Ratio 10.5, Glucose 175 H, Calcium 8.4 L, Total Bilirubin 0.50, AST 15, ALT 28, Alkaline Arnold sphatase 80, Total Protein 5.9 L, Albumin 2.4 L, Globulin 3.5, Albumin/Globulin Ratio 0.7 L Micro: Microbiology 06/16/21 09:18 Swab (Method) Nasal Screen MRSA/MSSA - Final Procedure Criteria Elective Risks - COVID COVID Risk Discussion: Postop day #2. Artur got up today with therapy however they felt that he simply is not ready to go home he still weak and had a little bit of a hard time with the walker. So we will try him 1 more day prior to discharge. His dressing is dry and healing well. When he was up he did not have a headache. He still complaining of some anterior quad pain as he did prior to surgery. We will keep an eye on that in addition it will be several days before have the path report on the vascular appearing tumor that we removed . Progress is satisfactory.
[2021-06-26 20:34] VITALS: BP 150/69; PULSE 90; RESP 18; TEMP 36.6; O2SAT 96
[2021-06-26] MEDS: Zolpidem Tartrate 5 MG Tablet PO (20:39)
[2021-06-27 03:05] VITALS: BP 133/81; PULSE 74; RESP 18; TEMP 36.6; O2SAT 94
[2021-06-27] MEDS: oxyCODONE 5 MG Tablet PO ×2 (03:09→14:45)
[2021-06-27 05:51] LABS: Absolute Lymphocyte Count 1.76 X10^3/uL (0.83-4.51); Absolute Neutrophil Count 7.4 X10^3/uL (2.0-7.7); Basophil# 0.05 X10^3/uL; Basophil% 0.5 % (0-1); Eosinophil# 0.36 X10^3/uL; Eosinophils% 3.3 % (0-5); Hemoglobin 13.9 g/dL (13.0-16.5); Lymphocyte # 1.76 X10^3/ul (0.83-4.51); Lymphocyte % 16.1 % (19-41); Mean Corp Hgb Conc 34.8 g/dL (32-36); Mean Corpuscular Hgb 32.2 pg (27.0-32.0); Mean Corpuscular Volume 92.6 fL (80-94); Mean Platelet Vol. 9.9 fl (6.2-12.0); Monocyte# 1.36 X10^3/uL; Monocyte% 12.4 % (0-10); NRBC Flagged by Analyzer 0 % (0-5); Neutrophil # 7.36 X10^3/uL (2.7-7.7); Neutrophil % 67.2 % (47-70); Platelet Count 201 K/mm3 (150-450); RBC Distribution Width CV 12.5 % (11.6-14.6); RBC Distribution Width SD 42.7 fl (35.1-43.9); Red Blood Count 4.32 M/mm3 (4.6-6.2); White Blood Count 10.9 K/mm3 (4.4-11.0)
[2021-06-27 06:36] LABS: ALB/GLOB Ratio 0.7 RATIO (0.9-2.4); AST(SGOT) 16 U/L (15-37); Alanine Aminotransfer ALT/SGPT 25 U/L (16-61); Albumin, Serum 2.4 g/dL (3.2-5.0); Alkaline Phosphatase 76 U/L (45-117); Anion Gap 4 (5-15); BUN 12 mg/dL (7-18); BUN/Creat Ratio 20.5 RATIO (10-20); Calcium,Total 8.5 mg/dL (8.5-10.1); Chloride 106 mmol/L (98-107); Creatinine, Serum 0.59 mg/dL (0.70-1.30); EST Glomerular Filtration Rate 144 mL/min (>60); Est Glom Filt Rate - Afr Amer 174 mL/min (>60); Estimated Creatinine Clearance 66.92 ml/min; Globulin 3.6 g/dL (2.2-4.2); Glucose 136 mg/dL (74-106); Potassium 4.1 mmol/L (3.5-5.1); Sodium Level 139 mmol/L (136-145)
[2021-06-27] MEDS: Phenytoin Na 100 MG Capsule PO ×2 (06:48→14:38)
[2021-06-27 09:05] VITALS: BP 128/69; PULSE 77; RESP 20; TEMP 36.9; O2SAT 95
[2021-06-27] MEDS: Ascorbic Acid 500 MG Tablet 1000 MG PO (09:54)
[2021-06-27] MEDS: Ensure Surgery 237 ML LIQUID PO (09:54)
[2021-06-27] MEDS: Senna/Docusate Sodium 1 Tablet 2 TABLET PO (09:54)
[2021-06-27] MEDS: Famotidine 20 MG Tablet PO (09:54)
[2021-06-27] MEDS: Lisinopril 10 MG Tablet PO (09:55)
--- NOTE | 2021-06-27 11:43 | PCM.PN.HOSP ---
Subjective Subjective Patient with no acute events overnight per self and per nursing report. Patient constipation has resolved and his notes he had 2 bowel movements the day prior. He has been up and walking as bedrest limitations have been removed. Patient reports pain is controlled and is eager for discharge stating that neurosurgery intends to discharge him today. Patient denies fevers, chills, nausea, emesis, abdominal pain, chest pain or dyspnea. Objective Data Objective Data Vital Signs: Vital Signs Temp Pulse Resp BP Pulse Ox 98.4 F 77 20 H 128/69 H 95 06/27/21 09:05 06/27/21 09:05 06/27/21 09:05 06/27/21 09:05 06/27/21 09:05 Oxygen Flow Rate (L/min) 2 Oxygen Delivery Method Room Air Weight: 205 lb 7.533 oz Body Mass Index (BMI) 29.5 Intake & Output: Intake and Output for Last 24 Hours 06/25/21 06/26/21 06/27/21 23:59 23:59 23:59 Intake Total 5436.50 / 5436.50 1999 651.67 / 651.67 Output Total 4050 / 4050 4000 / 4000 200 / 200 Balance 1386.50 / 1386.50 -1999 451.67 / 451.67 Lab / Micro Data Result Diagrams: 06/27/21 05:10 06/27/21 05:10 Labs: Laboratory Results - last 24 hr 06/27/21 05:10: WBC 10.9, RBC 4.32 L, Hgb 13.9, Hct 40.0, MCV 92.6, MCH 32.2 H, MCHC 34.8, RDW Std Deviation 42.7, RDW Coeff of Krystin 12.5, Plt Count 201, MPV 9.9, Immature Gran % (Auto) 0.500, Neut % (Auto) 67.2, Lymph % (Auto) 16.1 L, [place] % (Auto) 12.4 H, Eos % (Auto) 3.3, Baso % (Auto) 0.5, Absolute Neuts (auto) 7.4, Absolute Lymphs (auto) 1.76, Nucleated RBC % 0 06/27/21 05:10: Sodium 139, Potassium 4.1, Chloride 106, Carbon Dioxide 29.0, Anion Gap 4 L, BUN 12, Creatinine 0.59 L, Estim Creat Clear Calc 66.92, Est GFR (MDRD) Af Amer 174, Est GFR (MDRD) Non-Af 144, BUN/Creatinine Ratio 20.5 H, Glucose 136 H, Calcium 8.5, Total Bilirubin 0.40, AST 16, ALT 25, Alkaline Phosphatase 76, Total Protein 6.0 L, Albumin 2.4 L, Globulin 3.6, Albumin/Globulin Ratio 0.7 L Micro: Microbiology 06/16/21 09:18 Swab (Method) Nasal Screen MRSA/MSSA - Final Physical Exam Narrative Physical Examination: General: Awake, alert, oriented x 3 and cooperative, seated upright in the bed, no acute distress, notes pain controlled. Skin: Normal color, normal turgor, no icterus, no cyanosis. HEENT: AT/NC, EOMI, PERRLA, MMM. Lungs: CTA bilaterally, moderate effort, mild decrease BL bases, no rales, ronchi or wheezing. Heart: Regular rate and rhythm; no gallop, rub audible. Abdomen: Soft, overweight, nontender to palpation, nondistended, normalized bowel sounds. Extremities: No cyanosis, clubbing, or edema. Neurological: Patient awake, alert, oriented as noted, cognitive function intact; pupils equally reactive to light and accommodation, cranial nerves II-XII grossly normal, moving all 4 extremities, no focal deficits, strength significantly improved, mildly to moderately global crease Psychiatric: Affect appears improved, no acute evidence of depressive or anxiety feelings. Assessment & Plan Assessment/Plan (1) Lumbosacral radiculopathy at L4: PLAN: The patient is a 76 y/o M w/ PMHx: Epilepsy, Overweight, Severe OA s/p prior R THR, significant L4 lumbosacral radiculopathy who presents to the [facility] on 06/24/21 for planned intervention with L3-4 laminectomy on the left with an excisional biopsy of a vascular tumor per Dr. Hernandes. #1. Severe intractable lumbosacral radiculopathy L3-4 with incidental vascular epidural space tumor: Patient admitted to medical surgical floor by Dr. Hernandes, 06/24/2021 laminectomy L3-4 on the left with excisional biopsy of a vascular tumor, continues in the supine position per neurosurgery discretion, given significant pain status post OR altered patient pain regimen with improvement, patient 06/27/2021 off bed rest, moving with greater ease, prior constipation with narcotic and bedrest resolved. 06/27/2021 potential discharge per neurosurgery. #2. Elevated BP without hypertensive diagnosis: Patient with no prior noted history of hypertension however significantly ongoing blood pressures, started on lower dose lisinopril with improvement, will discharge to home on this dose with request for follow-up with primary care physician and repeat outpatient basic metabolic panel. #3. Epilepsy: We will continue patient home phenytoin regimen. #4. Severe osteoarthritis: Holding any NSAID therapy given patient acute presentation with #1. #5. DVT prophylaxis: SCDs, chemoprophylaxis per surgery discretion. Charges/Coding Visit Charges Inpatient E&M: 40433 Subs Hosp L2
[2021-06-27 14:35] VITALS: BP 130/74; PULSE 94; RESP 20; TEMP 36.8; O2SAT 94
[2021-06-27 15:41] VITALS: O2SAT 94
--- NOTE | 2021-06-27 15:53 | CASEMGMT ---
Social Work Note SW spoke with PT. Pt can sit in recliner initially at home because once pt is up and moving pt is moving well. ITALIA updated physician and RN. Vernell Martines PERSONNEL REPRESENTATIVE, TIME CLOCK REPAIRER
--- NOTE | 2021-06-27 16:09 | PCM.DC ---
Discharge Instructions Follow Up Care Test Results: Test results from this visit will be discussed in further detail at your follow-up appointment, if applicable. Discharge Plan Admission Admit Date/Time: 06/24/21 15:13 Primary Reason for Your Visit: surgery Attending Provider: Bonnie Banda Primary Care Provider: Prem Rodriguez Consulting Providers: Derrick Ascencio Instructions Patient Instructions: ED Hypertension New Begin Treatment Discharge Orders/Prescriptions Prescriptions: New lisinopril 10 mg Tablet 10 mg PO DAILY 30 Days Qty: 30 RF: 0 Continued omega 3-dcg-pzs-fish-turmeric 417 mg-120 mg- 276 mg-600 mg capsule 1,000 cap PO DAILY RF: 0 glucosamine HCl 500 mg tablet 1,000 mg PO DAILY RF: 0 saw palmetto 1,000 mg Capsule 1,000 mg PO DAILY RF: 0 ascorbic acid (vitamin C) 1,000 mg Capsule, Extended Release 1 cap PO DAILY RF: 0 dukyryk-bmgf-bafmv-oreg-capryl 100 mg-150 mg- 50 mg-150 mg Capsule 2 cap PO DAILY RF: 0 phenytoin sodium extended [Dilantin Extended] 100 mg Capsule 100 mg PO TID RF: 0 Referrals / Follow Up: Prem Rodriguez MD [Primary Care Provider] - (Follow-up within 3-5 days to review admission, recheck blood pressure as recently started on lisinopril for concern of hypertension. Please have repeat basic metabolic panel at follow-up.) Disposition Disposition (needs filled in before D/C Order can be placed): Home, Self Care
--- NOTE | 2021-06-27 16:11 | PCM.DC.SUM ---
Providers Date of Admission: 06/24/21 Primary Care Physician: Dr. Prem Rodriguez MD Consultations 06/24/21 18:20 Consult: Hospitalist Routine Consulting Provider: Derrick Ascencio Reason for Consult: Medical Management EMERGENT Consult: No MD Notified: Yes Date Notified: 06/24/21 Time Notified: 19:36 Method of Notification: Verbal Reason For Visit: LUMBAR LAMINECTOMY LT L3-4 Diagnosis Discharge Diagnosis (1) Lumbosacral radiculopathy at L4: Status: Acute Code(s): M54.17 - Radiculopathy, lumbosacral region Medications at Discharge Home Medications glucosamine HCl 500 mg tablet 1,000 mg PO DAILY 04/14/21 omega-3 417 mg-dha 120 mg-epa-276 mg-fish oil 600 mg-tumeric capsule 1,000 cap PO DAILY 04/14/21 ascorbic acid (vitamin C) 1 cap PO DAILY 06/11/21 phenytoin sodium extended [Dilantin Extended] 100 mg PO TID 06/11/21 saw palmetto 1,000 mg PO DAILY 06/11/21 wbdpwfp-oynl-ustnj-oreg-capryl 2 cap PO DAILY 06/11/21 lisinopril 10 mg PO DAILY 30 Days #30 tab 06/27/21 Hospital Course Summary of Care Provided Hospital Course: This patient was admitted on June 23, 2021 is being discharged on June 27, 2021. Admitting diagnosis was presumptive herniated disc L3-4. Discharge diagnoses are likely vascular tumor uncovered at surgery. Hospital course is unremarkable he has been having a hard time getting up from the bed but he is getting stronger according to physical therapy. The dressing is dry. He has been able to walk 75 feet with a walker. Has an appointment to see me in the office next week. He is giving oxycodone 04/27/2025's for pain. He was told that the dressing can come off on Wednesday and he may start showering on Wednesday. They are to call me if they have any problems between now and his appointment. This is the end of discharge summary on Artur Bee. This is Dr. Hernandes dictating. Weight / BMI Weight Weight: 205 lb 7.533 oz Body Mass Index (BMI) 29.5 ABG / Lab / Microbiology Data Result Diagrams: 06/27/21 05:10 06/27/21 05:10 Laboratory: Laboratory Results - last 24 hr 06/27/21 05:10: WBC 10.9, RBC 4.32 L, Hgb 13.9, Hct 40.0, MCV 92.6, MCH 32.2 H, MCHC 34.8, RDW Std Deviation 42.7, RDW Coeff of Krystin 12.5, Plt Count 201, MPV 9.9, Immature Gran % (Auto) 0.500, Neut % (Auto) 67.2, Lymph % (Auto) 16.1 L, [place] % (Auto) 12.4 H, Eos % (Auto) 3.3, Baso % (Auto) 0.5, Absolute Neuts (auto) 7.4, Absolute Lymphs (auto) 1.76, Nucleated RBC % 0 06/27/21 05:10: Sodium 139, Potassium 4.1, Chloride 106, Carbon Dioxide 29.0, Anion Gap 4 L, BUN 12, Creatinine 0.59 L, Estim Creat Clear Calc 66.92, Est GFR (MDRD) Af Amer 174, Est GFR (MDRD) Non-Af 144, BUN/Creatinine Ratio 20.5 H, Glucose 136 H, Calcium 8.5, Total Bilirubin 0.40, AST 16, ALT 25, Alkaline Phosphatase 76, Total Protein 6.0 L, Albumin 2.4 L, Globulin 3.6, Albumin/Globulin Ratio 0.7 L Microbiology: Microbiology 06/16/21 09:18 Swab (Method) Nasal Screen MRSA/MSSA - Final Meaningful Use Info Meaningful Use Diagnoses (Choose all that apply): None applicable Discharge Plan Admission Admit Date/Time: 06/24/21 15:13 Primary Reason for Your Visit: surgery Attending Provider: Bonnie Banda Primary Care Provider: Prem Rodriguez Consulting Providers: Derrick Ascencio Instructions Patient Instructions: ED Hypertension New Begin Treatment Discharge Orders/Prescriptions Prescriptions: New lisinopril 10 mg Tablet 10 mg PO DAILY 30 Days Qty: 30 RF: 0 Continued omega 0-zzy-lux-fish-turmeric 417 mg-120 mg- 276 mg-600 mg capsule 1,000 cap PO DAILY RF: 0 glucosamine HCl 500 mg tablet 1,000 mg PO DAILY RF: 0 saw palmetto 1,000 mg Capsule 1,000 mg PO DAILY RF: 0 ascorbic acid (vitamin C) 1,000 mg Capsule, Extended Release 1 cap PO DAILY RF: 0 usmovoh-trfq-pvywi-oreg-capryl 100 mg-150 mg- 50 mg-150 mg Capsule 2 cap PO DAILY RF: 0 phenytoin sodium extended [Dilantin Extended] 100 mg Capsule 100 mg PO TID RF: 0 Referrals / Follow Up: Prem Rodriguez MD [Primary Care Provider] - (Follow-up within 3-5 days to review admission, recheck blood pressure as recently started on lisinopril for concern of hypertension. Please have repeat basic metabolic panel at follow-up.) Disposition Disposition (needs filled in before D/C Order can be placed): Home, Self Care
[2021-06-27 17:15] VITALS: BP 132/69; PULSE 82; RESP 20; TEMP 37.1; O2SAT 95
== END 2021-06-27 17:15 | disposition home or self-care (01) | DRG 519 ==
LOC: SDC 17:21 → MS3 17:21
PROVIDERS: Anesthesiology; Admitting Provider Orthopaedic Surgery; PCP Family Medicine; Referring Provider Orthopaedic Surgery; Visit Provider Family Medicine
PROC: 00BY0ZX Excision of Lumbar Spinal Cord, Open Approach, Diagnostic (ICD-10-PCS; CPT 63030; principal; 2021-06-24 12:10)
DX: M51.16 Intervertebral disc disorders with radiculopathy, lumbar region (principal); G96.09 Other spinal cerebrospinal fluid leak; G95.89 Other specified diseases of spinal cord; M16.12 Unilateral primary osteoarthritis, left hip; G40.909 Epilepsy, unspecified, not intractable, without status epilepticus; R03.0 Elevated blood-pressure reading, without diagnosis of hypertension; K59.00 Constipation, unspecified; E66.3 Overweight; Z96.641 Presence of right artificial hip joint; G43.909 Migraine, unspecified, not intractable, without status migrainosus; Z68.29 Body mass index [BMI] 29.0-29.9, adult
CPT/HCPCS: 36415; 72020; 80048; 80053; 82962; 83735; 85025; 85730; 86703; 86706; 86708; 86803; 87081; 88305; 88311; 93005; 97162; 97530; 99251; J7120; A4216; G0463; J2405

== ENCOUNTER → 2024-06-13 | Outpatient (CLI) | payer MEDICARE, BC, SELFPAY ==
--- NOTE | 2024-06-13 07:22 | MRI_ITS ---
STUDY: MRI LUMBAR SPINE WITH AND WITHOUT CONTRAST REASON FOR EXAM: Male, 79 years old. recurrent radiculopathy, prior laminectomy TECHNIQUE: Standardized fat and water weighted pulse sequences were obtained in the sagittal and axial planes. IV CLARISCAN 19ML was administered for the contrast portion of the examination. COMPARISON: X-ray the lumbar spine dated May 16, 2024. MRI the lumbar spine dated April 29, 2021 FINDINGS: No marrow edema or fracture or compression deformity is present. No lytic or blastic process is present. No visualized epidural fluid collections. No evidence of vertebral osteomyelitis and discitis. Normal lumbar lordosis. There is no substantial scoliosis. Normal conus medullaris that terminates at the T12-L1: Small Schmorl''s node with diffuse disc desiccation mild disc space narrowing but no posterior disc herniation or bulging. Normal bilateral facet joints. Normal central canal and bilateral lateral recesses. Normal bilateral intervertebral neural foramina. L1-2: Mild disc space narrowing. Small Schmorl''s node. Mild anterior endplate spurring and annular bulging. Normal bilateral facet joints. Normal central canal and bilateral lateral recesses. Normal bilateral intervertebral neural foramina. L2-3: Moderate disc space narrowing with diffuse disc osteophyte complex. Retrolisthesis of L2 on L3 of 2 to 3 mm. Mild central canal stenosis. Mild to moderate facet joint hypertrophy. Mild bilateral foraminal stenosis. L3-4: Redemonstration of residual extruded and sequestered 1.66 x 1.28 cm focus of extruded disc material from the left paracentral portion of the disc into the anterior intrathecal space due to breech of the thecal sac. The sequestered disc material demonstrates peripheral enhancement likely due to fibrosis in these regions. No internal enhancement of the disc material is present which is an expected finding. No suspicious enhancement is seen in the remaining bony or soft tissue structures. The extruded disc material and a left paracentral space causes left lateral recess stenosis with nerve root compression and contributing to mild central canal stenosis. Severe disc space narrowing with a diffuse disc spur complex. Moderate Modic endplate degenerative signal. Mild to moderate facet joint hypertrophy. Mild left foraminal stenosis. Moderate right foraminal stenosis with nerve root compression. L4-5: Moderate disc space narrowing with anterior broad-based disc herniation/spur complex. No posterior disc herniation or bulging. Moderate facet joint hypertrophy. Moderate left foraminal stenosis with nerve root compression. Mild right foraminal stenosis. Normal central canal and bilateral lateral recesses. Moderate Modic endplate degenerative signal. L5-S1: Stable large posterior decompressive defects from L5-S1 of 2 L2-L3. Mild anterior and moderate posterior disc space narrowing with a minor posterior disc spur complex. Moderate central canal stenosis is present due to moderate facet joint and ligament of flavum hypertrophy. Moderate left and severe right foraminal stenosis with nerve root compression. Normal visualized sacral ala. Normal visualized paraspinous soft tissue structures. MRI/Spine Lumbar W/WO Contrast IMPRESSION: No significant interval change 1. L3-L4: Redemonstration of residual extruded and sequestered 1.66 x 1.28 cm focus of extruded disc material from the left paracentral portion of the disc into the anterior intrathecal space due to breech of the thecal sac. The sequestered disc material demonstrates peripheral enhancement likely due to fibrosis in these regions. No internal enhancement of the disc material is present which is an expected finding 2. Multilevel degenerative changes, as described above. Electronically Signed: Shaun Ruby MD at 11:06 [facility] ,
[2024-06-13 08:47] LABS: CREATININE FINGERSTICK < 1.0 mg/dL (0.70-1.30); EGFR FINGERSTICK > 60.0000 mL/min (>60)
== END | disposition home or self-care (01) ==
LOC: MRI 07:20
PROVIDERS: PCP Family Medicine; Referring Provider Orthopaedic Surgery Orthopaedic Surgery of the Spine; Visit Provider Orthopaedic Surgery Orthopaedic Surgery of the Spine
DX: M54.16 Radiculopathy, lumbar region (principal); Z98.890 Other specified postprocedural states
CPT/HCPCS: 72158